=== PATIENT | male | born 1965 | race Caucasian/White ===

== ENCOUNTER 2025-08-12 06:25 | Emergency (ER) | payer OTHER, SELFPAY ==
--- NOTE | ~2025-08-12 | XR_ITS ---
Examination: XR chest 1V portable Clinical History: chest injury Comparison: None Technique: Portable AP Findings: Heart size normal. Small airspace disease left lower lobe. No acute bony abnormality. IMPRESSION: 1. Small left lower lobe airspace disease. Likely contusion versus pneumonia. Reviewed, dictated and finalized at location R. TRICAL ESTIMATOR
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
--- NOTE | 2025-08-12 06:38 | ECG_ITS ---
Test Date: 2025-08-12 06:55:15 Measurements Intervals [place] Rate: 72 P: 73 NM: 146 QRS: 48 QRSD: 86 T: 53 QT: 412 QTc: 452 Interpretive Statements SINUS RHYTHM POSSIBLE LEFT ATRIAL ENLARGEMENT [-0.1mV P-WAVE IN V1/V2] DELAYED R-WAVE PROGRESSION ABNORMAL ECG No previous ECG available for comparison Electronically Signed On 08-12-2025 17:06:04 FISHER SCALLOP by German Lawrence M.D.
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
[2025-08-12 07:00] VITALS: O2SAT 99
[2025-08-12] MEDS: IPRATROPIUM 0.5 MG/ALBUTEROL SULFATE 2.5 MG (BASE) AMPUL.NEB 3 ML INHALATION (07:04)
[2025-08-12 07:07] VITALS: PULSE 80; RESP 16
[2025-08-12] MEDS: MORPHINE SULFATE (*CRX) 4 MG/ML INJ IV PUSH (07:08)
[2025-08-12 07:14] LABS: Hematocrit 44.2 % (42.0-52.0); Hemoglobin 14.9 g/dL (14.0-18.0); Immature Granulocyte Percent A 0.2 % (0-0.5); Lymphocytes Absolute Auto 2.07 K/mm3 (0.9-3.2); Mean Corpuscular HGB Conc 33.7 g/dl (32-36); Mean Corpuscular Hemoglobin 32.7 pg (26-34); Mean Corpuscular Volume 96.9 fl (80-100); Nucleated Red Blood Cells Absolute Auto 0.000 K/mm3 (0.0-0.012); Nucleated Red Blood Cells Perc 0.0 % (0.0-0.2); Platelet Count Result 386 k/mm3 (150-375); Red Blood Count 4.56 M/mm3 (4.6-6.20); White Blood Count 8.9 K/mm3 (4.5-10.0)
[2025-08-12 07:17] VITALS: BP 127/82; PULSE 74; RESP 24; O2SAT 97
[2025-08-12 07:25] LABS: INR 0.9; Prothrombin Time 12.8 Seconds (11.1-14.7)
[2025-08-12 07:26] LABS: Partial Thromboplastin Time 27.5 Seconds (22.3-36.8)
[2025-08-12 07:30] LABS: Alanine Aminotransferase 20 U/L (6-50); Albumin Level 4.0 g/dL (3.5-5.1); Alkaline Phosphatase 83 U/L (38-126); Anion Gap 6 mmol/L (4-12); Aspartate Amino Transferase 28 U/L (17-59); Bilirubin,Total 0.4 mg/dL (0.2-1.3); Blood Urea Nitrogen 17 mg/dL (9-20); Calcium 8.9 mg/dL (8.4-10.2); Carbon Dioxide 24 mmol/L (22-30); Chloride 104 mmol/L (98-107); Estimated CRCL calculation 105 ml/min; Estimated Glomerular Filt Rate > 60; Glucose 97 mg/dL (65-110); Lipase 166 U/L (23-300); Potassium 4.5 mmol/L (3.4-5.0); Sodium 134 mmol/L (137-145); Total Protein 7.0 g/dL (6.3-8.2)
[2025-08-12 07:41] LABS: Troponin I < 0.012 ng/mL (0.000-0.034)
[2025-08-12 09:35] VITALS: BP 154/95; PULSE 77; RESP 20; O2SAT 98
== END 2025-08-12 09:37 | disposition home or self-care (01) ==
PROVIDERS: Emergency Medicine; Emergency Provider Emergency Medicine
DX: J18.9 Pneumonia, unspecified organism (principal); R07.89 Other chest pain; R91.1 Solitary pulmonary nodule
CPT/HCPCS: 36415; 71045; 71260; 80053; 83690; 84484; 85025; 85610; 85730; 93005; 94640; 96374; 99284; J2270; Q9967